=== PATIENT | male | born 1955 | race Asian ===

== ENCOUNTER 2020-09-20 19:28 | Emergency (ER) | payer OTHER ==
[~2020-09-20] VITALS: Ht 170.2 cm; Wt 58.3 kg
[2020-09-20 19:28] VITALS: BP 136/49; TEMP 98.4
[2020-09-20 19:59] LABS: PLATELET COUNT 229 K/uL (142-355)
[2020-09-20 20:01] LABS: POTASSIUM 4.3 mmol/L (3.6-5.2)
[2020-09-20] MEDS ORDERED: TYLENOL325 MG PO (22:50)
[2020-09-20] MEDS ORDERED: LIPITOR80 MG PO (22:51)
[2020-09-20] MEDS ORDERED: CLON0.2D TD (22:52)
[2020-09-20] MEDS ORDERED: CETI10TA PO (22:55)
[2020-09-20] MEDS ORDERED: DOCU100C10 PO (22:55)
[2020-09-20] MEDS ORDERED: DEPAKOTE PO (23:01)
[2020-09-20] MEDS ORDERED: ELIQUIS5 MG PO (23:02)
[2020-09-20] MEDS ORDERED: ACID CONTROL10 MG PO (23:05)
[2020-09-20] MEDS ORDERED: FISH OIL500 M1 PO (23:07)
[2020-09-20] MEDS ORDERED: FOLATE400 MCG PO (23:08)
[2020-09-20] MEDS ORDERED: ZIPR20CA PO (23:11)
[2020-09-20] MEDS ORDERED: HYDR25TA57 PO (23:14)
[2020-09-20] MEDS ORDERED: LEVE500T5 PO (23:15)
[2020-09-20] MEDS ORDERED: COZAAR100 MG PO (23:16)
[2020-09-20] MEDS ORDERED: MAGNESIUM500 M2 PO (23:19)
[2020-09-20] MEDS ORDERED: METFORMIN HCL500 M1 PO (23:21)
[2020-09-20] MEDS ORDERED: MULTI VITAMIN1 TAB PO (23:28)
[2020-09-20] MEDS ORDERED: POTASSIUM CHL PO (23:34)
[2020-09-20] MEDS ORDERED: SENNA8.6 MG PO (23:35)
[2020-09-20] MEDS ORDERED: SPIRONOLACT25 MG PO (23:37)
[2020-09-20] MEDS ORDERED: VITAMIN D31000 UNI4 PO (23:38)
[2020-09-20] MEDS ORDERED: ASPIRIN 81 LOW81 MG PO (23:46)
[2020-10-07] MEDS ORDERED: ZIPR80CA PO (09:34)
[2020-10-07] MEDS ORDERED: MAGN400T4 PO (09:34)
[2020-10-07] MEDS ORDERED: OLAN2.5T2 PO (09:34)
[2020-10-07] MEDS ORDERED: DIVALPROEX500 MG PO (09:35)
[2020-10-07] MEDS ORDERED: ESCI10TA PO (09:35)
== END 2020-09-20 20:53 | disposition other institution (70) ==
LOC: ED 19:28
PROVIDERS: Family Medicine
DX: R46.89 Other symptoms and signs involving appearance and behavior (principal); I10 Essential (primary) hypertension; Z11.59 Encounter for screening for other viral diseases; Z04.6 Encounter for general psychiatric examination, requested by authority; F17.210 Nicotine dependence, cigarettes, uncomplicated
CPT/HCPCS: 36415; 80053; 81000; 85027; 87635; 93005; 99283; 99285; U0003

== ENCOUNTER 2021-03-19 21:25 | Emergency (ER) | payer OTHER ==
[~2021-03-19] VITALS: Ht 160 cm; Wt 64.4 kg
[~2021-03-19 21:25] MED LIST: ACID CONTROL10 MG PO; ASPIRIN 81 LOW81 MG PO; CETI10TA PO; CLON0.2D TD; COZAAR100 MG PO; DEPAKOTE PO; DIVALPROEX500 MG PO; DOCU100C10 PO; ELIQUIS5 MG PO; ESCI10TA PO; FISH OIL500 M1 PO; FOLATE400 MCG PO; HYDR25TA57 PO; LEVE500T5 PO; LIPITOR80 MG PO; MAGN400T4 PO; MAGNESIUM500 M2 PO; METFORMIN HCL500 M1 PO; MULTI VITAMIN1 TAB PO; OLAN2.5T2 PO; POTASSIUM CHL PO; SENNA8.6 MG PO; SPIRONOLACT25 MG PO; TYLENOL325 MG PO; VITAMIN D31000 UNI4 PO; ZIPR20CA PO; ZIPR80CA PO
[2021-03-19 22:01] LABS: PLATELET COUNT 227 K/uL (142-355)
[2021-03-19 22:10] LABS: POTASSIUM 4.1 mmol/L (3.6-5.2)
[2021-03-19 22:51] VITALS: BP 156/68; TEMP 98.1
[2021-03-20] MEDS ORDERED: TAMS0.4C PO (01:59)
[2021-03-20] MEDS ORDERED: ASCORBIC ACD500 MG PO (02:00)
== END 2021-03-19 22:51 | disposition other institution (70) ==
LOC: ED 21:25
PROVIDERS: Family Medicine
DX: F03.91 Unspecified dementia, unspecified severity, with behavioral disturbance (principal); Z11.52 Encounter for screening for COVID-19; Z04.6 Encounter for general psychiatric examination, requested by authority
CPT/HCPCS: 36415; 80053; 85027; 87635; 93005; 99283; U0003